=== PATIENT | male | born 1980 | race Caucasian/White ===

== ENCOUNTER 2021-07-02 15:46 | Emergency (ER) | payer OTHER, SELFPAY ==
[2021-07-02 16:08] VITALS: BP 109/86; PULSE 80; RESP 20; TEMP 36.8; O2SAT 99; BMI 22.1
--- NOTE | 2021-07-02 17:39 | W.ED.ABDPA2 ---
HPI - Abdominal Pain General: Chief Complaint: Abdominal Pain Stated Complaint: abd pain/sent by urgent care Time Seen by Provider: 07/02/21 17:32 History of Present Illness: HPI narrative: 41-year-old male patient comes in with abdominal pain for the last 3 days. Patient does have a history of abdominal pain about 3 months ago and was evaluated for some concerns of blood in the stool. Patient had upper and lower GI endoscopy which noted hemorrhoids and at the time he had a hemorrhoidectomy. Patient then reports for the last 3 days he has had increasing discomfort and has been using some Pepto-Bismol and has noted black stools. His female significant other states that there was black stools prior to this at times and is concerned about a GI bleed. Patient appears well. Patient appears in mild to no pain. Patient does not take routine medications except Metamucil. Patient reports some nausea but no fever or vomiting. Patient does report some weight loss over the last 4 months. Associated Symptoms: Reports other (Dark stools.) Review of Systems General: Reports: 10 or more systems reviewed and unremarkable except in HPI and below GI: Reports: abdominal pain and other (Dark stools.) [facility] ED PFSH: Social History (Updated 03/11/21 @ 09:32 by Kathy Wyman LPN) Smoking and tobacco status: never smoked Alcohol intake: never Physical Exam Const: COMMON NORMALS: no acute distress and patient oriented x3 GENERAL APPEARANCE: cooperative HENMT: COMMON NORMALS: normocephalic and Normal external nose present HEAD & SCALP: normal to inspection and normocephalic NOSE: Normal external nose present Eye: GENERAL EYE: appearance normal, both eyes and all related structures Neck/C-Spine: COMMON NORMALS: full ROM Chest: COMMONS NORMALS: normal inspection of the chest Resp: COMMON NORMALS: normal respiratory effort EFFORT & INSPECTION: Yes able to speak in complete sentences Cardio: COMMON NORMALS: regular rate and regular rhythm RATE: regular rate RHYTHM: regular rhythm GI: COMMON NORMALS: Soft to palpation PALPATION: Yes Soft to palpation and Yes Tenderness to palpation present (GI) (Generalized) : COMMON NORMALS: Yes no CVA tenderness BLADDER/KIDNEY EXAM: Yes no CVA tenderness Back/Pelvis: COMMON NORMALS: no CVA tenderness and thoracic and lumbar spine normal to inspection Extremity: COMMON NORMALS: normal to inspection Neuro: COMMON NORMALS: patient oriented x3 and moves all extremities Psych: COMMON NORMALS: mental status grossly normal and cooperative Skin: COMMON NORMALS: no rashes or lesions noted GENERAL SKIN EXAM: no rashes or lesions noted Course Vital Signs: Vital signs: Vital Signs Temperature 98.2 F 07/02/21 16:08 Pulse Rate 71 07/02/21 19:42 Respiratory Rate 19 H 07/02/21 19:42 Blood Pressure 119/69 07/02/21 19:42 Pulse Oximetry 98 07/02/21 19:42 MDM - Abdominal Pain MDM Narrative: Medical decision making narrative: Patient came in today for complaints of some diarrhea stools that were dark in nature. Spouse said they looked coffee ground. No vomiting has been noted. Abdomen has been slightly tender in the lower part of the abdomen. Patient denies any fever. On exam abdomen is soft with some minimal lower abdominal tenderness. Skin was warm and dry. No CVA tenderness was noted. Vital signs were normal. Differential diagnosis includes but not limited to gastroenteritis, gastritis, bowel obstruction, carcinoma. CT of the abdomen pelvis noted some nodules to the liver but otherwise was unremarkable. Patient did also have some incidental ascites to the on the exam. It was suggested that patient have an MRI on a nonemergent basis for further evaluation of the liver nodules. Laboratory values noted some mild anemia, CMP was unremarkable, lipase was normal. I believe the patient may have a gastritis. Patient also has a history of alcoholism and substance abuse which may be lending some concerns for GI bleed. Will place patient on pantoprazole 40 mg twice a day for the next 14 days. Recommend monitoring for fever. And encouraged follow-up with PCP for further evaluation of abnormal liver CT. Patient reported understanding and need for follow-up or return to the ER for worsening symptoms. Lab Data: Labs: Lab Results 07/02/21 07/02/21 17:40 17:40 WBC 10.2 10^3/uL H 10 ^3/uL (4.0-10.0) RBC 5.15 10^6/uL 10^6 /uL (4.1-5.3) Hgb 12.4 g/dL g/dL (11.7-16.6) Hct 39.7 % L % (42.0-52.0) MCV 77.1 fl L fl (80-94) MCH 24.1 pg L pg (28.0-34.0) MCHC 31.2 g/dL g/dL (30.0-36.0) RDW 15.7 % H % (12.1-15.1) Plt Count 391 10^3/cmm 10^3 /cmm (130-400) MPV 9.1 fL fL (7.4-10.4) Neut % (Auto) 69.8 % % Lymph % (Auto) 20.7 % % [place] % (Auto) 7.1 % % Eos % (Auto) 1.3 % % Baso % (Auto) 0.8 % % Neut # (Auto) 7.11 10^3/uL 10^3 /uL (1.8-7.7) Lymph # (Auto) 2.1 10^3/uL 10^3/ uL (0.8-4.8) [place] # (Auto) 0.7 10^3/uL 10^3/ uL (0.2-0.9) Eos # (Auto) 0.1 10^3/uL 10^3/ uL (0.0-0.8) Baso # (Auto) 0.1 10^3/uL 10^3/ uL (0.0-0.1) Nucleated RBC % (a uto) 0 % % Nucleated RBCs # 0.0 /100WBC /100W BC Sodium 137 mmol/L mmol/L (136-145) Potassium 4.0 mmol/L mmol/L (3.5-5.1) Chloride 98 mmol/L mmol/L (98-107) Carbon Dioxide 28 mmol/L mmol/L (22-29) Anion Gap 15.0 (5-19) BUN 11 mg/dL mg/dL (6-20) Creatinine 0.7 mg/dL mg/dL (0.7-1.2) GFR Calculation 124.3 mL/min mL/m in (90-130) Glucose 87 mg/dL mg/dL (65-115) Calculated Osmolal ity 283 mOsm/kg L mOs m/kg (285-295) Calcium 9.0 mg/dL mg/dL (8.5-10.5) Total Bilirubin 0.2 mg/dL mg/dL (0.15-1.2) AST 17 U/L U/L (0-40) ALT 19 U/L U/L (0-41) Alkaline Phosphata se 77 IU/L IU/L (40-130) Total Protein 7.3 g/dL g/dL (6.6-8.7) Albumin 3.7 g/dL g/dL (3.5-5.2) Globulin 3.6 g/dL g/dL (1.3-4.6) Lipase 16 U/L U/L (13-60) Discharge Plan Discharge Patient Disposition: Home Clinical Impression: Abnormal liver CT, Anemia, mild Gastritis Qualifiers: Gastritis type: unspecified gastritis Chronicity: unspecified Gastritis bleeding: with bleeding Qualified Code(s): K29.71 - Gastritis, unspecified, with bleeding Condition: Stable Prescriptions: New pantoprazole 40 mg tablet,delayed release (DR/EC) 40 mg PO BID 14 Days Qty: 28 RF: 0 Discharge Orders: Discharge ED (Routine); Ordered 07/02/21 Ordered By: Dallas Carnes Referrals: Aniceto Oswald DO [Primary Care Provider] - Discharge Diet: Usual diet Discharge Activity: Increase activity as tolerated Patient Instructions: Gastritis (ED), Opioid Safety Activity Restrictions/Additional Instructions: Home and rest. Take pantoprazole 1 tablet twice a day. Take the medication about 30 minutes prior to each meal. Healthy diet and activity. Follow-up with primary care for further evaluation regarding abnormal CT scan. In light of your weight loss is really important that you follow-up regarding this abnormal liver exam on the CT. It was suggested by radiologist that you have an MRI on a nonemergent evaluation for further exam. Light diet and activity. Drink plenty of fluids. Follow-up with primary care for further instruction. Return to the ER for high fever or new concerns. Coding Level of Care Code ED Wastewater Process Engineer for Chg Fwd Exam Comprehensive
--- NOTE | 2021-07-02 17:45 | CTR_ITS ---
PROCEDURE INFORMATION: Exam: CT Abdomen And Pelvis With Contrast Exam date and time: 07/02/2021 5:45 PM Age: 41 years old Clinical indication: Abdominal pain; Generalized; Patient HX: C/O abd pain w dark stool; Additional info: Abd pain, black tools TECHNIQUE: Imaging protocol: Computed tomography of the abdomen and pelvis with contrast. Radiation optimization: All CT scans at this facility use at least one of these dose optimization techniques: automated exposure control; mA and/or kV adjustment per patient size (includes targeted exams where dose is matched to clinical indication); or iterative reconstruction. Contrast material: OMNI 300; Contrast volume: 95 ml; Contrast route: INTRAVENOUS (IV); COMPARISON: No relevant prior studies available. RADIATION DOSE METRICS: Total DLP (mGy-cm): 1000.21 FINDINGS: Lungs: There is a noncalcified 7 mm left lower lobe pulmonary nodule on axial series 3, image 6. There is subsegmental atelectasis in the left lung. Liver: Scattered mixed density liver nodules measure up to 13 x 10 mm in the right lobe. Gallbladder and bile ducts: The gallbladder is normal. There is no biliary dilation. Pancreas: The pancreas is unremarkable. Spleen: The spleen is unremarkable. Adrenal glands: The adrenal glands are unremarkable. Kidneys and ureters: The kidneys are unremarkable. No hydronephrosis or stones. No ureteral dilation. Stomach and bowel: The stomach is unremarkable. The small bowel is nondilated. The colon is unremarkable. Appendix: The appendix is normal. Intraperitoneal space: Small volume ascites. There is no intraperitoneal free air. Vasculature: The aorta is unremarkable. There is no aneurysm. The portal, splenic and superior mesenteric veins are patent. Lymph nodes: There is no lymphadenopathy in the retroperitoneum, mesentery, pelvis or inguinal regions. Urinary bladder: The urinary bladder is unremarkable. Reproductive: The prostate and seminal vesicles are unremarkable. Bones/joints: Bones are unremarkable. Soft tissues: There are multiple metallic BBs in both buttocks. The abdominal wall is intact. CT/CT abdomen pelvis w con* [id number] IMPRESSION: 1. Mild ascites. 2. Indeterminate liver lesions. Further evaluation with non-emergent liver MRI is recommended. 3. Left lower lobe pulmonary nodule. For patients at low risk (minimal or absent history of smoking and of other known risk factors), recommend CT Chest at 6-12 months, then consider CT Chest at 18-24 months. For patients at high risk (history of smoking or of other known risk factors), recommend CT Chest at 6-12 months, then CT Chest at 18-24 months. (Reference: June) REFERENCES: June Espinosa et al. Guidelines for Management of Incidental Pulmonary Nodules Detected on CT Images: From the Fleischner Society 2017. Radiology. 2017;284(1):228-243. Radiation Dose CTDIVOL = (mGy): DLP = 1000.21 (mGy-cm)
[2021-07-02 17:50] LABS: Basophils # 0.1 10^3/uL (0.0-0.1); Basophils % 0.8 %; Eosinophils # 0.1 10^3/uL (0.0-0.8); Eosinophils % 1.3 %; Hematocrit 39.7 % (42.0-52.0); Hemoglobin 12.4 g/dL (11.7-16.6); Lymphocytes # 2.1 10^3/uL (0.8-4.8); Lymphocytes % 20.7 %; Mean Corpuscular HGB Conc 31.2 g/dL (30.0-36.0); Mean Corpuscular Hemoglobin 24.1 pg (28.0-34.0); Mean Corpuscular Volume 77.1 fl (80-94); Mean Platelet Volume 9.1 fL (7.4-10.4); Monocytes # 0.7 10^3/uL (0.2-0.9); Monocytes % 7.1 %; Neutrophils # 7.11 10^3/uL (1.8-7.7); Neutrophils % 69.8 %; Nucleated Red Blood Cells % 0 %; Platelet Count 391 10^3/cmm (130-400); Red Blood Count 5.15 10^6/uL (4.1-5.3); Red Cell Distribution Width 15.7 % (12.1-15.1); White Blood Count 10.2 10^3/uL (4.0-10.0)
[2021-07-02] MEDS: sodium chloride 0.9% 1,000 ML 999 ML IV (17:59)
[2021-07-02 18:32] LABS: Alanine Aminotransferase 19 U/L (0-41); Albumin Level 3.7 g/dL (3.5-5.2); Alkaline Phosphatase 77 IU/L (40-130); Aspartate Amino Transferase 17 U/L (0-40); Blood Urea Nitrogen 11 mg/dL (6-20); Carbon Dioxide 28 mmol/L (22-29); Chloride 98 mmol/L (98-107); Globulin 3.6 g/dL (1.3-4.6); Glomerular Filtration Rate 124.3 mL/min (90-130); Glucose 87 mg/dL (65-115); Lipase 16 U/L (13-60); Osmolality Calculated 283 mOsm/kg (285-295); Sodium 137 mmol/L (136-145); Total Bilirubin 0.2 mg/dL (0.15-1.2); Total Protein 7.3 g/dL (6.6-8.7)
[2021-07-02] MEDS: iohexol 300 mg/mL 100 mL Btl IV (18:34)
[2021-07-02 19:42] VITALS: BP 119/69; PULSE 71; RESP 19; O2SAT 98
[2021-07-02] MEDS: pantoprazole DR 40 mg Tablet PO (20:13)
== END 2021-07-02 20:22 | disposition home or self-care (01) ==
PROVIDERS: Emergency Provider Nurse Practitioner Family; PCP Family Medicine
DX: K29.71 Gastritis, unspecified, with bleeding (principal); D64.9 Anemia, unspecified; R93.2 Abnormal findings on diagnostic imaging of liver and biliary tract
CPT/HCPCS: 74177; 80053; 83690; 85025; 96360; 99283; J7030; Q9967

== ENCOUNTER 2024-09-22 16:58 | Inpatient (IN) | payer SELFPAY ==
--- NOTE | 2024-09-22 17:04 | W.ED.PSYCHS ---
HPI - Psych General: Chief Complaint: Psychiatric Symptoms Stated Complaint: 96 Hold Time Seen by Provider: 09/22/24 17:00 Source: patient and police Mode of arrival: ambulatory Limitations: no limitations History of Present Illness: 44-year-old male is brought here by police for suicidal ideations patient states he has had recent drug use including meth states that he feels worthless and just no longer wants to live he states has been having active thoughts of killing himself and wants to get help he denies any worsening improving factors. Associated symptoms: Reports depression and suicidal ideation Related Data Allergies Allergy/AdvReac Type Severity Reaction Status Date / Time No Known Allergies Allergy Verified 03/11/21 09:36 Review of Systems Const: Denies: fever(s), chills, body aches or change in appetite ENMT: Denies: throat pain or dental pain Card: Denies: chest pain Resp: Denies: dyspnea GI: Denies: abdominal pain, nausea, vomiting or diarrhea Musc: Denies: neck pain or back pain Skin/Breast: Denies: rash Neuro: Denies: headache(s) Psych: Reports: depression and suicidal ideation [facility] ED PFSH: Social History Smoking and tobacco/nicotine status: never used tobacco/nicotine Alcohol intake: never Substance/Drug Use: never Physical Exam Const: COMMON NORMALS: no acute distress, patient oriented x3 and healthy appearing HENMT: COMMON NORMALS: normocephalic and atraumatic HEAD & SCALP: normocephalic and atraumatic Eye: COMMON NORMALS: conjunctivae normal CONJUNCTIVA: Yes conjunctivae normal Neck/C-Spine: COMMON NORMALS: full ROM and supple Chest: COMMONS NORMALS: normal inspection of the chest Resp: COMMON NORMALS: normal respiratory effort Cardio: COMMON NORMALS: regular rate, regular rhythm and No murmurs present (Cardio) RATE: regular rate RHYTHM: regular rhythm Extremity: COMMON NORMALS: normal to inspection and full ROM Neuro: COMMON NORMALS: patient oriented x3, moves all extremities and no focal motor deficits Psych: COMMON NORMALS: mental status grossly normal and cooperative MOOD & AFFECT: Yes depressed mood THOUGHT CONTENT: Yes Suicidality present Skin: COMMON NORMALS: no rashes or lesions noted and no wounds GENERAL SKIN EXAM: no rashes or lesions noted Course Vital Signs: Vital signs: Vital Signs Temperature 98.2 F 09/22/24 17:07 Pulse Rate 82 09/22/24 17:07 Respiratory Rate 16 09/22/24 17:07 Blood Pressure 128/83 09/22/24 17:07 Pulse Oximetry 95 09/22/24 17:07 Oxygen Delivery Me thod Room Air 09/22/24 17:07 MDM - Psych Medical Decision Making Patient presents here with suicidal ideation he is medically cleared I spoke to psychiatrist will admit at this time. He is under 96-hour hold. Medical Records I reviewed the patient's medical records. Lab Data I reviewed the patient's lab results. 09/22/24 17:50 09/22/24 17:50 Laboratory Results WBC 12.61 10^3/uL (3.29-11.43) H 09/22/24 17:50 RBC 4.73 10^6/uL (3.85-5.65) 09/22/24 17:50 Hgb 12.40 g/dL (11.27-16.99) 09/22/24 17:50 Hct 36.3 % (37-53) L 09/22/24 17:50 MCV 76.7 fl (82-101) L 09/22/24 17:50 MCH 26.2 pg (27-33) L 09/22/24 17:50 MCHC 34.2 g/dL (30-55) 09/22/24 17:50 RDW 14.4 % (12.1-15.1) 09/22/24 17:50 Plt Count 368 10^3/cmm (157-399) 09/22/24 17:50 MPV 9.2 fL (7.4-10.4) 09/22/24 17:50 Neut % (Auto) 84.0 % 09/22/24 17:50 Lymph % (Auto) 8.1 % 09/22/24 17:50 [place] % (Auto) 7.1 % 09/22/24 17:50 Eos % (Auto) 0.0 % 09/22/24 17:50 Baso % (Auto) 0.2 % 09/22/24 17:50 Neut # (Auto) 10.61 10^3/uL (1.8-7.7) H 09/22/24 17:50 Lymph # (Auto) 1.0 10^3/uL (0.8-4.8) 09/22/24 17:50 [place] # (Auto) 0.9 10^3/uL (0.2-0.9) 09/22/24 17:50 Eos # (Auto) 0.0 10^3/uL (0.0-0.8) 09/22/24 17:50 Baso # (Auto) 0.0 10^3/uL (0.0-0.1) 09/22/24 17:50 Nucleated RBC % (auto) 0 % 09/22/24 17:50 Nucleated RBCs # 0.0 /100WBC 09/22/24 17:50 No radiology studies performed this visit Discharge Plan Discharge Patient Disposition: Admitted As Inpatient Clinical Impression: Suicidal ideation Condition: Stable Referrals: Aniceto Owsald DO [Primary Care Provider] - Coding Level of Care Code ED Waistband Setter for Kam Brenner
[2024-09-22 17:07] VITALS: BP 128/83; PULSE 82; RESP 16; TEMP 36.8; O2SAT 95; BMI 20.7
--- NOTE | 2024-09-22 17:10 | PC.NURSE ---
pt changed out into green paperscrubs by Enzo gonzalez. pt belongings removed and inventoried by Enzo Edward and robotics testing technicianJonathan gutierrez. belongings placed into locker outside room 9.
--- NOTE | 2024-09-22 17:57 | PC.NURSE ---
96 hr rights reviewed with patient @2047 with assistance of NELLY Nails. All education reviewed with patient. No verbalized questions or concerns at this time. Patient copy left @bedside with patient. Water and soda provided. No verbalized needs at this time.
[2024-09-22 18:09] LABS: Basophils % 0.2 %; Hematocrit 36.3 % (37-53); Lymphocytes % 8.1 %; Mean Corpuscular HGB Conc 34.2 g/dL (30-55); Mean Corpuscular Hemoglobin 26.2 pg (27-33); Mean Corpuscular Volume 76.7 fl (82-101); Mean Platelet Volume 9.2 fL (7.4-10.4); Monocytes # 0.9 10^3/uL (0.2-0.9); Monocytes % 7.1 %; Neutrophils # 10.61 10^3/uL (1.8-7.7); Nucleated Red Blood Cells % 0 %; Platelet Count 368 10^3/cmm (157-399); Red Blood Count 4.73 10^6/uL (3.85-5.65); Red Cell Distribution Width 14.4 % (12.1-15.1); White Blood Count 12.61 10^3/uL (3.29-11.43)
[2024-09-22 18:29] LABS: Alanine Aminotransferase 132 U/L (0-41); Albumin Level 4.5 g/dL (3.5-5.2); Alkaline Phosphatase 80 U/L (40-130); Anion Gap 27.4 (5-19); Aspartate Amino Transferase 198 U/L (0-40); Blood Urea Nitrogen 71 mg/dL (6-20); Carbon Dioxide 21 mmol/L (22-29); Chloride 95 mmol/L (98-107); Creatinine Clr Calc Pharmacy 22.0557; Globulin 2.9 g/dL (1.3-4.6); Glomerular Filtration Rate 15.9 mL/min (90-130); Glucose 92 mg/dL (65-115); Osmolality Calculated 310 mOsm/kg (285-295); Potassium 3.4 mmol/L (3.5-5.1); Sodium 140 mmol/L (136-145); Total Bilirubin 0.8 mg/dL (0.15-1.2); Total Protein 7.4 g/dL (6.6-8.7)
[2024-09-22 18:31] LABS: Acetaminophen < 5.0 ug/mL (10-30); Alcohol Level < 10 mg/dL (0-10); Salicylate < 0.3 mg/dL (3-10)
[2024-09-22 19:36] VITALS: BP 132/82; PULSE 104; RESP 20; TEMP 36.5; O2SAT 97
[2024-09-22 19:41] VITALS: PULSE 87; O2SAT 97
[2024-09-22 20:09] VITALS: BP 132/82; PULSE 104; RESP 20; TEMP 36.5; O2SAT 97
[2024-09-22] MEDS: trazodone 50 mg Tablet PO (21:28)
[2024-09-22] MEDS: hyDROXYzine 25 mg Capsule 50 MG PO (21:28)
[2024-09-22] MEDS: OLANZapine 5 mg ODT PO (21:28)
[2024-09-22 22:29] LABS: Amphetamines Screen Urine Positive (Negative); Barbiturates Screen Urine Negative (Negative); Benzodiazepines Screen Urine Negative (Negative); Cocaine Screen Urine Negative (Negative); Opiate Screen Urine Negative (Negative); PCP Screen Urine Negative (Negative); THC Screen Urine Positive (Negative)
[2024-09-22] MEDS: haloperidol inj 5 mg/mL INJ 1 mL IM (23:16)
[2024-09-22] MEDS: LORazepam 2 mg/mL INJ 1 mL IM (23:16)
[2024-09-22] MEDS: diphenhydrAMINE 50 mg/mL SDV 1mL IM (23:17)
--- NOTE | 2024-09-22 23:36 | PC.NURSE ---
At 23:15 while doing her rounds Saray Coleman CNA observed Patient pacing and screaming in his room, Stating that he was ON FIRE . Patient Perceived that he was BURNING ALIVE . Charge nurse Assessed Patient and indeed he was having these delusions. Dr. Thrasher was notified and Patient was given Benadryl 50 mg IM, Haldol 5 mg IM and Ativan 2MG IM for increased agitation and acting out loudly. Patient now is laying in bed resting with eyes closed.
--- NOTE | 2024-09-23 03:36 | PC.NURSE ---
when this principal technical writer was walking rounds at 2315 I observed Patient pacing and screaming in his room, Stating that he was ON FIRE . Patient Perceived that he was BURNING ALIVE . Charge nurse Jose A Assessed Patient and indeed he was having these delusions.
[2024-09-23 06:30] VITALS: BP 132/78; PULSE 73; RESP 16; TEMP 36.9; O2SAT 99
[2024-09-23] MEDS: OLANZapine 5 mg ODT PO (08:15)
[2024-09-23] MEDS: hyDROXYzine 25 mg Capsule 50 MG PO (08:15)
[2024-09-23] MEDS: nicotine 4 mg lozenge MUCOUS MEM ×2 (08:15→21:06)
[2024-09-23] MEDS: gabapentin 300 mg Capsule PO ×3 (08:15→21:07)
[2024-09-23 14:00] VITALS: BP 100/66; PULSE 77; RESP 18; TEMP 36.6; O2SAT 100
--- NOTE | 2024-09-23 18:47 | P.NPUHP_ITS ---
Providers/Chief Complaint 2 Admitting Physician: Freddie Godinez MD Primary Care Provider: Aniceto Oswald DO Chief Complaint: 96 Hold HPI NPU History of Present Illness Jacek Romero is a 44 year old male who presented to the emergency department accompanied by the police after he had reported to police that he had been feeling suicidal and more depressed since relapsing on methamphetamine over the last 8 days. The patient was admitted to the neuropsychiatric unit for further evaluation and treatment. He endorses having increasing thoughts of suicide. He reports that he has been having frequent awakenings at night. He reports having chronic pain issues. He reports increased stress from a declining relationship with his current . He had stated that he had been sober off of methamphetamine for 6 years but decided to hawk with his meth amphetamine using and take methamphetamine with her. He reports that since that time he has also been having auditory hallucinations reporting that he hears to stupid gis manager messing in my head . He also reports seeing various things that do not appear to be there. He has reported that this is caused him a great deal of distress. He endorses increased feelings of hopelessness. He reports difficulties with concentration and endorses that he has been crying more frequently. He denies any history of romulo. He did report a past history of psychosis associated with methamphetamine use. He denies any recent problems with his previous medical issues regarding malignant mesothelioma. He has reported some recent anhedonia. He denied any recent shortness of breath. He reported no history of recent hemoptysis. He denied any recent anxiety. He does report some recent loss of appetite. Inpatient psychiatric history: None Outpatient psychiatric history: None reported, previous records that indicated some medication trials with psychotropic medications including olanzapine, and mirtazapine over the past year. Medical history: History of malignant mesothelioma with history of chemotherapy. Patient reports receiving routine PET scans every 3 months [facility]. Surgical history: Patient does report a history of a recent pleurectomy. Allergies: No known drug allergies Current medications: Gabapentin 300 mg twice a day, oxycodone, mirtazapine 7.5 mg at night, buprenorphine patch 20 mcg/h Legal history: None reported Family psychiatric history: None reported Substance abuse history: He reported having used methamphetamines for many years and stated relapsing after 6 years of sobriety. He had not endorsed any history of recent substance abuse treatment either inpatient or outpatient. He denies any routine alcohol use. He does report routine marijuana use. Social history: Patient was born in [place] and raised by his biological parents. He had denied any history of trauma during his childhood. He reports that he had graduated high school from [place]. He has 1 brother and 2 sisters. He reports that he has 2 children from a previous relationship. He reports that he has been for 5 years and currently lives with his . 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 He had reported no history of problems with learning during his childhood. Meds NPU Allergies Allergy/AdvReac Type Severity Reaction Status Date / Time No Known Allergies Allergy Verified 03/11/21 09:36 PFSH NPU 2 PFSH: Social History Smoking and tobacco/nicotine status: never used tobacco/nicotine Alcohol intake: never Substance/Drug Use: never Mental Status Exam 2 MSE Comments: Patient is a cachectic white male who was cooperative on interview. His gait appeared slow but steady. His hygiene was poor. There was no evidence of any abnormal involuntary motor movements, tics, or tremors appreciated. His speech was slightly reduced in rate but normal in volume and prosody. His mood was described as depressed. His affect was restricted in range and mood congruent. His thought process was linear logical and goal-directed. His thought content showed suicidal ideation with no clear plan endorsed. He denied any homicidal ideation. He did at times appear to be responding to internal stimuli and endorsed hearing to voices and has had having a disagreement. He also endorsed visual hallucinations. There was no clear evidence of delusional thinking. He was alert and oriented person place time and situation. His recent and remote memory appeared grossly intact. His insight was poor. His judgment was poor. His impulse control appeared limited. His attention span was variable. Vitals/I&O/Wt Last Vital Signs Temp 98 F 09/23/24 14:00 Pulse 77 09/23/24 14:00 Resp 18 09/23/24 14:00 BP 100/66 09/23/24 14:00 Pulse Ox 100 09/23/24 14:00 O2 Del Method Room Air 09/22/24 19:36 Weight last 48 hrs Weight 63.503 kg Data NPU 09/22/24 17:50 09/22/24 17:50 A&P Assessment and plan (1) Depression, unspecified: (2) Unspecified psychosis: (3) Suicidal ideation: (4) Methamphetamine abuse: Plan 44-year-old male with a past history of malignant mesothelioma reports worsening mood in the presence of hallucinations in the context of active use of methamphetamine after an extended history of sobriety from methamphetamine. Patient was agreeable to treatment for his depression and psychosis at this time. #1.? Engage patient in individual milieu and group therapy. #2?? Recommend sober living treatment at the highest level of care to which the patient is willing to commit #3???Start Zyprexa 5mg at night to target psychosis. Start Lexapro 10mg daily to target depression. Continue Oxycodone as prescribed. #4?? TO-15 minute checks? #5?? Will attempt to gather collateral information #6 Medical consult regarding labs. Involuntary Hold Information 2 96 Hour Hold: 96 Hour Involuntary Admission: Yes 96 Hour Hold Ending Date: 09/28/24 96 Hour Hold Ending Time: 17:13 Attestations NPU 2 Medical Necessity Statement*: Inpatient hospitalization is medically necessary and deemed to ?be ?the clinically appropriate intervention ?at this time.? We will monitor/initiate medications and make changes as indicated.? The patient will be in the hospital for over 2 midnights.? The patient?s likely length of stay 5-7 days. Coding Level of Care Code Acute Code for Chg Fwd Diagnoses Depression, unspecified F32.A Unspecified psychosis F29 Suicidal ideation R45.851 Methamphetamine abuse F15.10
--- NOTE | 2024-09-23 19:37 | PC.NURSE ---
NEW ORDERS RECEIVED TO START OXYCODONE IR 10 MG PO Q 4 HOUR PRN PAIN. PT EDUCATED SUPPORT VOICED.
[2024-09-23 20:07] VITALS: BP 117/69; PULSE 72; RESP 18; O2SAT 100
--- NOTE | 2024-09-23 20:29 | P.CONIM_ITS ---
Providers/Reason For Consult 2 Consulting Physician/Specialty*: psychiatry Reason for Consult*: ruthann Attending Physician: Freddie Godinez MD Primary Care Provider: Aniceto Oswald DO History of Present Illness History of Present Illness Jacek Romero is a 44 year old male with a past medical history of malignant mesothelioma, status post EPP surgery in [place] roughly a year ago, follows up with oncology in [facility], who presents to [facility] neuropsychiatric unit for suicidal ideation. Hospitalist team has been consulted due to patient's RUTHANN creatinine 4.1, transaminitis. Patient tells me that he was diagnosed with mesothelioma a few years ago, the cause is unknown, he had what sounds a EPP surgery for it in [facility], follows up with oncology team in [facility], his last few Scans show no reoccurrence, he tells me that after his EPP surgery he developed acute kidney failure, his GFR was down to 30, but then it recovered, he does report smoking, does report methamphetamine use, denies a history of HIV or hepatitis C, no flank pain, no dysuria Review of Systems 2 Const: Denies: fever(s) or chills Card: Denies: chest pain Resp: Denies: dyspnea GI: Denies: abdominal pain Neuro: Denies: headache(s) Medications/Allergies Home Medications Medication Instructions Recorded Confirmed Last Taken Type gabapentin 300 mg capsule 300 mg PO TID 09/23/24 09/23/24 09/23/24 18:00 History (Neurontin) Allergies Allergy/AdvReac Type Severity Reaction Status Date / Time No Known Allergies Allergy Verified 03/11/21 09:36 Current Medications Generic Name Dose Route Start Last Admin Trade Name Freq PRN Reason Stop Dose Admin Diphenhydramine HCl 50 mg 09/22/24 19:36 09/22/24 23:17 Diphenhydramine 50 Mg/Ml Sdv 1ml IM 50 mg ONCE PRN Administration Severe Extrapyramidal Symptoms Gabapentin 300 mg 09/23/24 09:00 09/23/24 15:15 Gabapentin 300 Mg Capsule PO 300 mg TID SLOAN Administration Haloperidol Lactate 5 mg 09/22/24 19:36 09/22/24 23:16 Haloperidol Inj 5 Mg/Ml Inj 1 Ml IM 5 mg Q4H PRN Administration Severe Aggression Hydroxyzine Pamoate 50 mg 09/22/24 19:36 09/23/24 08:15 Hydroxyzine 25 Mg Capsule PO 50 mg Q6H PRN Administration ANXIETY Lorazepam 2 mg 09/22/24 19:36 09/22/24 23:16 Lorazepam 2 Mg/Ml Inj 1 Ml IM 2 mg Q4H PRN Administration Severe Aggression Nicotine Polacrilex 4 mg 09/22/24 22:56 09/23/24 08:15 Nicotine 4 Mg Lozenge MUCOUS MEM 4 mg Q2H PRN Administration NICOTINE CRAVINGS Olanzapine 5 mg 09/22/24 19:36 09/23/24 08:15 Olanzapine 5 Mg Odt PO 5 mg Q4H PRN Administration Agitation/Psychosis Trazodone HCl 50 mg 09/22/24 19:36 09/22/24 21:28 Trazodone 50 Mg Tablet PO 50 mg BEDTIME PRN Administration SLEEP PFSH Acute 2 PFSH: Medical History (Updated 09/23/24 @ 20:38 by Tunde Haro MD) History of malignant mesothelioma Social History Smoking and tobacco/nicotine status: never used tobacco/nicotine Alcohol intake: never Substance/Drug Use: never Vitals/I&O/Wt Last Vital Signs Temp 98 F 09/23/24 14:00 Pulse 72 09/23/24 20:07 Resp 18 09/23/24 20:07 BP 117/69 09/23/24 20:07 Pulse Ox 100 09/23/24 20:07 O2 Del Method Room Air 09/22/24 19:36 Weight last 48 hrs Weight 63.503 kg Physical Exam 2 Const: COMMON NORMALS: no acute distress and patient oriented x3 Eye: COMMON NORMALS: Equal, round and reactive pupils present and EOMs intact bilaterally PUPIL: Yes Equal, round and reactive pupils present Resp: COMMON NORMALS: normal respiratory effort, No retractions, No use of accessory muscles and clear to auscultation bilaterally AUSCULTATION: clear to auscultation bilaterally Cardio: COMMON NORMALS: regular rate, regular rhythm, S1 normal heart sound present and S2 normal heart sound present RATE: regular rate RHYTHM: r egular rhythm HEART SOUNDS: S1 normal heart sound present and S2 normal heart sound present GI: COMMON NORMALS: Normal to inspection, nondistended, normoactive bowel sounds present and non-tender Extremity: COMMON NORMALS: no pedal edema Neuro: COMMON NORMALS: patient oriented x3 Skin: OTHER: Multiple track sesay seen on right forearm, with some surrounding erythema Data 09/22/24 17:50 09/22/24 17:50 A&P Assessment and plan (1) RUTHANN (acute kidney injury): (2) Transaminitis: Plan Acute kidney injury -Etiology unclear -Recheck creatinine -CPK -Further blood work -Might require inpatient admission for IV fluids based on clinical progress Leukocytosis -Recheck -CRP, Pro-Michele Low MCV, ferritin, iron, Transaminitis, HIV, hep panel, lipase, Consult Attestations 2 Medical Necessity Statement: Patient requires hospitalization, RUTHANN, leukocytosis, transaminitis Diagnoses RUTHANN (acute kidney injury) N17.9 Transaminitis R74.01
[2024-09-23] MEDS: trazodone 50 mg Tablet PO (21:06)
[2024-09-23 21:07] VITALS: RESP 18; O2SAT 100
[2024-09-23] MEDS: OLANZapine 5 mg TABLET PO (21:07)
[2024-09-23] MEDS: oxyCODONE 5 mg IR Tab/Cap 10 MG PO (21:07)
[2024-09-23 22:44] LABS: Bilirubin Urine Negative (Negative); Blood Urine Trace (Negative); Glucose Urine UA Negative (Normal); Ketones Urine Negative (Negative); Leukocyte Esterase Urine Negative (Negative); Nitrate Urine Negative (Negative); Protein Urine 1+ (Negative); Specific Gravity, Urine 1.021 (1.005-1.030); Urine Appearance Clear (CLEAR); Urine Color Yellow (Yellow); pH Urine 5.5 (5-7)
[2024-09-23 22:49] LABS: Add Urine Microscopic? YES; Bacteria Urine None Seen /hpf; Hyaline Casts Urine 1.65 /lpf; RBC Urine 0-2 /hpf (0-2); Squamous Epithelial Cell Urine 0-5 /hpf (0-5); WBC Urine 0-5 /hpf (0-5)
[2024-09-23 23:32] LABS: Basophils % 0.5 %; Eosinophils # 0.1 10^3/uL (0.0-0.8); Eosinophils % 1.2 %; Hematocrit 34.6 % (37-53); Lymphocytes # 1.7 10^3/uL (0.8-4.8); Lymphocytes % 19.4 %; Mean Corpuscular HGB Conc 34.4 g/dL (30-55); Mean Corpuscular Hemoglobin 26.8 pg (27-33); Mean Corpuscular Volume 77.9 fl (82-101); Monocytes # 0.8 10^3/uL (0.2-0.9); Monocytes % 9.2 %; Neutrophils # 5.95 10^3/uL (1.8-7.7); Neutrophils % 69.5 %; Nucleated Red Blood Cells % 0 %; Platelet Count 349 10^3/cmm (157-399); Red Blood Count 4.44 10^6/uL (3.85-5.65); Red Cell Distribution Width 14.7 % (12.1-15.1); White Blood Count 8.56 10^3/uL (3.29-11.43)
[2024-09-23 23:46] LABS: Alanine Aminotransferase 94 U/L (0-41); Albumin Level 3.7 g/dL (3.5-5.2); Alkaline Phosphatase 66 U/L (40-130); Anion Gap 13.2 (5-19); Aspartate Amino Transferase 98 U/L (0-40); Blood Urea Nitrogen 71 mg/dL (6-20); C Reactive Protein 46.6 mg/L (0.0-4.9); Calcium 8.9 mg/dL (8.5-10.5); Carbon Dioxide 26 mmol/L (22-29); Chloride 100 mmol/L (98-107); Creatinine Clr Calc Pharmacy 28.2588; Ferritin 208 ng/mL (30-400); Gamma Glutamyl Transferase 18 U/L (8-61); Globulin 2.4 g/dL (1.3-4.6); Glomerular Filtration Rate 21.2 mL/min (90-130); Glucose 117 mg/dL (65-115); Iron 19 ug/dL (59-158); Lipase 102 U/L (13-60); Osmolality Calculated 304 mOsm/kg (285-295); Percent Saturation 8.4 % (20-50); Potassium 3.2 mmol/L (3.5-5.1); Sodium 136 mmol/L (136-145); Total Bilirubin 0.3 mg/dL (0.15-1.2); Total Iron Binding Capacity 225 mcg/dl; Total Protein 6.1 g/dL (6.6-8.7); Unsaturated Iron Binding 206 ug/dL (112-347)
[2024-09-23 23:53] LABS: Procalcitonin 0.49 ng/mL (0-0.5)
[2024-09-24] VITALS (8 sets, daily range): BP systolic 102–126; BP diastolic 49–68; PULSE 60–82; RESP 16–18; O2SAT 96–100
[2024-09-24 00:04] LABS: Creatine Phosphokinase 2375 U/L (39-308)
--- NOTE | 2024-09-24 00:08 | US_ITS ---
WS: [id number] Complete ABDOMINAL ULTRASOUND HISTORY: liver/phil COMPARISON: CT 07/02/2021 Liver: 14.5 cm in length. Normal size liver and echogenicity. No bile duct dilatation or mass. Indete rminate liver masses seen on the prior CT of 07/02/2021 are not definitely identified. There may be a few small scattered benign cysts. There is no solid mass identified. Portal Vein: Normal hepatopetal flow with monophasic waveform. Gallbladder: Status post cholecystectomy. CBD: 0.6 cm Pancreas: Normal size and echogenicity. Right kidney: 11.2 cm x 4.6 x 3.8 cm. Cortex: 1.3 cm. Normal size and echogenicity. No hydronephrosis or mass. Left kidney: 10.5 cm x 3.9 cm x 5.1 cm. Cortex: 1.3 cm. Normal size and echogenicity. No hydronephrosis or mass. Spleen: 11.3 cm. Normal size and echogenicity. Aorta and IVC: Unremarkable abdominal aorta and IVC. US/US abdomen complete* [id number] Impression: 1. Status post cholecystectomy. 2. No renal obstruction or mass. 3. No intrahepatic duct dilatation.
[2024-09-24 00:11] LABS: Hepatitis A Antibody IgM Non-Reactive (Nonreactive); Hepatitis B Core IgM Non-Reactive (Nonreactive); Hepatitis B Surface Antigen Non-Reactive (Nonreactive); Hepatitis C Virus Antibody Reactive (Nonreactive)
[2024-09-24 00:12] LABS: HIV 1 & 2 Antibody Non-Reactive (Non-Reactiv); HIV 1 & 2 Antigen Non-Reactive (Non-Reactiv)
--- NOTE | 2024-09-24 00:35 | PC.NURSE ---
Lab called with a critical : CK was [id number]. Dr Haro notified. Orders for 1:1 sitter while administering ordered IV fluids. Awaiting a sitter and supplies to run fluids.
[2024-09-24] MEDS: sodium chloride 0.9% 1,000 ML 75 ML IV ×2 (01:24→13:45)
[2024-09-24] MEDS: escitalopram 10 mg Tablet PO (08:26)
[2024-09-24] MEDS: gabapentin 300 mg Capsule PO ×3 (08:26→21:21)
[2024-09-24] MEDS: oxyCODONE 5 mg IR Tab/Cap 10 MG PO ×3 (08:26→21:20)
[2024-09-24] MEDS: OLANZapine 5 mg ODT PO (08:29)
--- NOTE | 2024-09-24 08:44 | PC.NURSE ---
UP PACING IN ROOM WITH SITTER AT SIDE DUE TO LEFT AC FOREARM IV #20 INFUSING NS AT 75MLS/HR. PT IS AWAITING ICU/CSU OR MED SURG BED DUE TO INCREASED CRITICAL CK LEVEL AND DIAGNOSIS OF RHABDOMYLOSIS. REPORTS INCREASED ANXIETY 8/10 AND DEPRESSION 9/10, VISTARILL 50 MG GIVEN ORDERED FOR ANXIETY. PT CONTINUES TO ENDORSE SEEING KIDS PUSH DOWN A TREE AND OTHER BIZARRE SCENARIO'S. POSITVE FOR VISUAL HALLUCINATIONS. DENIES SI/HI AND AH AT THIS TIME. REPORTS HE SLEPT WELL. RATES PAIN. NPO UNTIL U/S OF KIDNEY AND LIVER COMPLETED. ORDERS PLACED. PT IS ABLE TO TAKE MEDICATION AND REPORTED PAIN 3/10, OXYCODONE 10 MG GIVEN ORDERED FOR PAIN. ALL QUESTIONS ANSWERED AND SUPPORT VOICED.
[2024-09-24] MEDS: nicotine 2 mg Gum BUCCAL ×2 (10:21→15:16)
--- NOTE | 2024-09-24 10:28 | PC.NURSE ---
U/S HAS COMPLETED U/S OF LIVER AND KIDNEYS, NPO ORDER REMOVED.
--- NOTE | 2024-09-24 15:16 | P.NPUPN_ITS ---
Subjective NPU 2 Subjective: 44-year-old male admitted with auditory and visual hallucinations along with depression and suicidal ideation. The patient had endorsed the use of amphetamines. He had been given IV fluids out of concern of rhabdomyolysis after consultation from the medical team last night. Patient had expressed being thankful. He had reported continued depression and stated that he had been more sad recently. He reported no side effects from his current regimen but continued to report hearing the voice of police officers in his head. The patient reported low energy and low motivation. He had expressed desire to follow-up again with his oncologist regarding his malignant mesothelioma. Mental Status Exam 2 MSE Comments: He is pleasant and cooperative on interview. He appeared in no acute distress with IV in his arm in his room delivering fluids. His speech was normal in regards to rate, rhythm and prosody. His mood was described as down. His affect was restricted in range and mood congruent. He did appear to be responding to internal stimuli and endorsed auditory hallucinations and visual hallucinations. There was no evidence of delusional thinking. He was alert oriented to person, place, time and situation. His recent and remote memory appeared grossly intact. His attention span was adequate. He denied any homicidal ideation but endorsed suicidal ideation. His insight was poor . His judgment at this time was poor. His impulse control appeared fair. There is no evidence of any abnormal involuntary motor movements tics or tremors appreciated. Vitals/I&O/Wt Last Vital Signs Temp 98 F 09/23/24 14:00 Pulse 63 09/24/24 14:00 Resp 16 09/24/24 14:00 BP 126/67 09/24/24 14:00 Pulse Ox 100 09/24/24 14:00 O2 Del Method Room Air 09/22/24 19:36 09/24/24 09/24/24 09/24/24 06:59 14:59 22:59 Intake Total 926.25 / 926.25 Balance 926.25 / 926.25 Weight last 48 hrs Weight 63.503 kg Data NPU 09/23/24 22:59 09/23/24 22:59 A&P Assessment and plan (1) Depression, unspecified: (2) Unspecified psychosis: (3) Suicidal ideation: (4) Methamphetamine abuse: Plan 44-year-old male with a past history of malignant mesothelioma reports worsening mood in the presence of hallucinations in the context of active use of methamphetamine after an extended history of sobriety from methamphetamine. Patient was agreeable to treatment for his depression and psychosis at this time. #1.? Engage patient in individual milieu and group therapy. #2?? Recommend sober living treatment at the highest level of care to which the patient is willing to commit #3???Continue Zyprexa 5mg at night to target psychosis. Continue Lexapro 10mg daily to target depression. Continue Oxycodone as prescribed. #4?? TO-15 minute checks? #5?? Will attempt to gather collateral information #6 Appreciate medical consult for treatment of Rhabdomyolysis. IV fluids etc. Involuntary Hold Information 2 96 Hour Hold: 96 Hour Involuntary Admission: Yes 96 Hour Hold Ending Date: 09/28/24 96 Hour Hold Ending Time: 17:13 Attestations NPU 2 Medical Necessity Statement*: Inpatient hospitalization is medically necessary and deemed to ?be ?the clinically appropriate intervention ?at this time.? We will monitor/initiate medications and make changes as indicated.? The patient?s likely length of stay 5-7 days. Coding Level of Care Code Acute Code for Chg Fwd Diagnoses Depression, unspecified F32.A Unspecified psychosis F29 Suicidal ideation R45.851 Methamphetamine abuse F15.10
--- NOTE | 2024-09-24 20:31 | P.PN_ITS ---
Subjective 2 Subjective: He overall does not feel great, he is having some muscle aches, denies nausea or vomiting. Vitals/I&O/Wt Last Vital Signs Temp 98 F 09/23/24 14:00 Pulse 82 09/24/24 19:52 Resp 16 09/24/24 19:52 BP 102/49 09/24/24 19:52 Pulse Ox 96 09/24/24 19:52 O2 Del Method Room Air 09/22/24 19:36 09/24/24 09/24/24 09/24/24 06:59 14:59 22:59 Intake Total 926.25 / 926.25 Balance 926.25 / 926.25 Physical Exam 2 Narrative: Sitting up in bed. Accompanied by one-to-one sitter Const: COMMON NORMALS: patient oriented x3 and alert GENERAL APPEARANCE: c ooperative ORIENTATION/CONSCIOUSNESS: Yes awake HENMT: COMMON NORMALS: oropharynx normal Neck/C-Spine: COMMON NORMALS: no JVD Resp: COMMON NORMALS: normal respiratory effort and clear to auscultation bilaterally AUSCULTATION: clear to auscultation bilaterally Cardio: COMMON NORMALS: no JVD, regular rhythm, S1 normal heart sound present, S2 normal heart sound present and No murmurs present (Cardio) RHYTHM: regular rhythm HEART SOUNDS: S1 normal heart sound present and S2 normal heart sound present GI: COMMON NORMALS: Normal to inspection, nondistended, normoactive bowel sounds present, Soft to palpation and non-tender PALPATION: Yes Soft to palpation Extremity: COMMON NORMALS: no joint enlargement and no pedal edema Neuro: COMMON NORMALS: patient oriented x3 and moves all extremities S ENSORIUM/ORIENTATION: Yes alert Skin: COMMON NORMALS: no rashes or lesions noted GENERAL SKIN EXAM: no rashes or lesions noted Data 09/23/24 22:59 09/23/24 22:59 A&P Assessment and plan (1) RUTHANN (acute kidney injury): (2) Transaminitis: Plan Acute kidney injury: Reviewed vitals, BUN, creatinine, potassium, bicarb, anion gap, noted with improving renal function, BUN 71, creatinine down to 3.2. Anion gap and bicarb unremarkable, bicarb is 26. Continue IV hydration for now. Reviewed CK, 2375, repeat CK level. He is having some myalgia. -Etiology unclear Repeat chemistry. -Further blood work -Might require inpatient admission for IV fluids based on clinical progress Leukocytosis: Reviewed CBC, leukocytosis resolved. -Recheck CRP with moderate elevation. Procalcitonin not elevated at 0.49. Iron deficiency: Start iron supplementation would benefit from outpatient follow-up to further assess cause, plan endoscopic evaluation. Transaminitis, reviewed HIV, hep panel, lipase. Positive HCV serology. RNA has been requested and pending. Depression, suicidal ideation: Reviewed psychiatry note. Attestations 2 Medical Necessity Statement*: Continue psychiatric assessment and management. Continue IV fluid, reassess kidney injury, CPK with symptomatic rhabdomyolysis. Diagnoses RUTHANN (acute kidney injury) N17.9 Transaminitis R74.01
[2024-09-24] MEDS: hyDROXYzine 25 mg Capsule 50 MG PO (21:19)
[2024-09-24] MEDS: trazodone 50 mg Tablet PO (21:20)
[2024-09-24] MEDS: OLANZapine 5 mg TABLET PO (21:21)
[2024-09-24] MEDS: nicotine 4 mg lozenge MUCOUS MEM (21:22)
[2024-09-25] VITALS (7 sets, daily range): BP systolic 106–111; BP diastolic 53–94; PULSE 70–93; RESP 16–18; TEMP 36.4–37; O2SAT 98–100
[2024-09-25] MEDS: sodium chloride 0.9% 1,000 ML 75 ML IV (02:18)
[2024-09-25] MEDS: nicotine 4 mg lozenge MUCOUS MEM ×5 (06:42→17:10)
[2024-09-25] MEDS: oxyCODONE 5 mg IR Tab/Cap 10 MG PO ×4 (08:07→21:21)
[2024-09-25] MEDS: ferrous sulfate EC 325 mg Tablet PO (08:07)
[2024-09-25] MEDS: escitalopram 10 mg Tablet PO (08:07)
[2024-09-25] MEDS: gabapentin 300 mg Capsule PO ×3 (08:07→21:21)
[2024-09-25] MEDS: OLANZapine 5 mg ODT PO ×2 (08:07→14:47)
[2024-09-25 08:11] LABS: Alanine Aminotransferase 70 U/L (0-41); Albumin Level 3.6 g/dL (3.5-5.2); Alkaline Phosphatase 65 U/L (40-130); Anion Gap 14.2 (5-19); Aspartate Amino Transferase 56 U/L (0-40); Blood Urea Nitrogen 36 mg/dL (6-20); Calcium 8.9 mg/dL (8.5-10.5); Carbon Dioxide 25 mmol/L (22-29); Chloride 101 mmol/L (98-107); Creatinine Clr Calc Pharmacy 45.2141; Globulin 2.2 g/dL (1.3-4.6); Glomerular Filtration Rate 36.5 mL/min (90-130); Glucose 99 mg/dL (65-115); Osmolality Calculated 290 mOsm/kg (285-295); Potassium 4.2 mmol/L (3.5-5.1); Sodium 136 mmol/L (136-145); Total Bilirubin 0.2 mg/dL (0.15-1.2); Total Protein 5.8 g/dL (6.6-8.7)
[2024-09-25 08:17] LABS: Creatine Phosphokinase 964 U/L (39-308)
[2024-09-25] MEDS: haloperidol 5 mg Tablet PO (09:29)
--- NOTE | 2024-09-25 09:34 | PC.NURSE ---
Morning assessment Patient tearful during morning assessment. Patient rates anxiety 9/10 and pain 9/10. Patient denies suicidal ideation, homicidal ideation, and hallucinations. Patient stated to this nurse that he messed up real bad, which in turn is going to mess up his whole life. 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 Patient given haldol 5mg PO following zyprexa 5mg ODT for anxiety.
[2024-09-25] MEDS: hyDROXYzine 25 mg Capsule 50 MG PO ×2 (14:15→21:22)
--- NOTE | 2024-09-25 14:49 | PC.NURSE ---
PRN Zyprexa 5mg ODT given to pt for complaints of anxiety 9(0-10)
--- NOTE | 2024-09-25 17:53 | P.NPUPN_ITS ---
Subjective NPU 2 Subjective: 44-year-old male admitted with auditory and visual hallucinations along with depression and suicidal ideation. The patient had continued to report hearing voices. He had reported that he continued to feel depressed. He stated that he was feeling better in the sense that he was able to better discern real things from imaginary things here. Patient had continued report feeling tired and sad. He had expressed sadness at relapsing on methamphetamine stating that he had been able to maintain work and had avoided illicit substances for a good deal of time. Patient had been less isolative on the milieu today. He had reported some improvement in sleep last night. He had reported that the voices had been quieter since the initiation of the Zyprexa. Mental Status Exam 2 MSE Comments: He is pleasant and cooperative on interview. His speech was normal in regards to rate, rhythm and prosody. His mood was described as low. His affect was restricted in range and mood congruent. He did not appear to be responding to internal stimuli and endorsed fleeting auditory hallucinations and no visual hallucinations. There was no evidence of delusional thinking. He was alert oriented to person, place, time and situation. His recent and remote memory appeared grossly intact. His attention span was adequate. He denied any homicidal ideation but endorsed suicidal ideation. His insight was poor. His judgment at this time was poor. His impulse control appeared fair. There is no evidence of any abnormal involuntary motor movements tics or tremors appreciated. Vitals/I&O/Wt Last Vital Signs Temp 98.6 F 09/25/24 14:00 Pulse 77 09/25/24 14:00 Resp 16 09/25/24 17:10 BP 106/94 09/25/24 14:00 Pulse Ox 99 09/25/24 14:00 O2 Del Method Room Air 09/25/24 14:00 09/25/24 09/25/24 09/25/24 06:59 14:59 22:59 Intake Total 941.25 / 1867.50 960 / 960 Balance 941.25 / 1867.50 960 / 960 Data NPU 09/23/24 22:59 09/25/24 07:43 A&P Assessment and plan (1) Depression, unspecified: (2) Unspecified psychosis: (3) Suicidal ideation: (4) Methamphetamine abuse: Plan 44-year-old male with a past history of malignant mesothelioma reports worsening mood in the presence of hallucinations in the context of active use of methamphetamine after an extended history of sobriety from methamphetamine. Patient was agreeable to treatment for his depression and psychosis at this time. #1.? Engage patient in individual milieu and group therapy. #2?? Recommend sober living treatment at the highest level of care to which the patient is willing to commit #3???Continue Zyprexa 5mg at night to target psychosis. Continue Lexapro 10mg daily to target depression. Continue Oxycodone as prescribed. #4?? TO-15 minute checks? #5?? Will attempt to gather collateral information #6 Appreciate medical consult for treatment of Rhabdomyolysis. IV fluids etc. Involuntary Hold Information 2 96 Hour Hold: 96 Hour Involuntary Admission: Yes 96 Hour Hold Ending Date: 09/28/24 96 Hour Hold Ending Time: 17:13 Attestations NPU 2 Medical Necessity Statement*: Inpatient hospitalization is medically necessary and deemed to ?be ?the clinically appropriate intervention ?at this time.? We will monitor/initiate medications and make changes as indicated.? The patient?s likely length of stay 3-4 days. Coding Level of Care Code Acute Code for Chg Fwd Diagnoses Depression, unspecified F32.A Unspecified psychosis F29 Suicidal ideation R45.851 Methamphetamine abuse F15.10
--- NOTE | 2024-09-25 18:37 | P.PN_ITS ---
Subjective 2 Subjective: This morning he states was a bit rough for him, but in the afternoon he is feeling better. Denies any worsening aches. Tolerating oral intake. Vitals/I&O/Wt Last Vital Signs Temp 98.6 F 09/25/24 14:00 Pulse 77 09/25/24 14:00 Resp 16 09/25/24 17:10 BP 106/94 09/25/24 14:00 Pulse Ox 99 09/25/24 14:00 O2 Del Method Room Air 09/25/24 14:00 09/25/24 09/25/24 09/25/24 06:59 14:59 22:59 Intake Total 941.25 / 1867.50 960 / 960 Balance 941.25 / 1867.50 960 / 960 Physical Exam 2 Narrative: Having lunch in the common room. Const: COMMON NORMALS: patient oriented x3 and alert GENERAL APPEARANCE: c ooperative ORIENTATION/CONSCIOUSNESS: Yes awake HENMT: COMMON NORMALS: oropharynx normal Resp: COMMON NORMALS: normal respiratory effort GI: INSPECTION: No abdominal distension Extremity: COMMON NORMALS: no joint enlargement and no pedal edema Neuro: COMMON NORMALS: patient oriented x3 and moves all extremities S ENSORIUM/ORIENTATION: Yes alert Skin: COMMON NORMALS: no rashes or lesions noted GENERAL SKIN EXAM: no rashes or lesions noted Data 09/23/24 22:59 09/25/24 07:43 A&P Assessment and plan (1) RUTHANN (acute kidney injury): (2) Transaminitis: Plan Acute kidney injury: Reviewed vitals, interval labs, reviewed BUN, creatinine, anion gap, bicarb, potassium. Improving renal function. BUN down to 36, creatinine 2. Anion gap, bicarb unremarkable. Potassium is normal. Reviewed CK, decreasing down to 964. Continued IV fluids for today, will discontinue tonight. He is ambulating,tolerating oral intake. Recheck chemistry, CK. Reviewed psychiatry note. -Etiology unclear Leukocytosis: leukocytosis resolved. CRP with moderate elevation. Procalcitonin not elevated at 0.49. Iron deficiency: Started iron supplementation would benefit from outpatient follow-up to further assess cause, plan endoscopic evaluation. Transaminitis, reviewed HIV, hep panel, lipase. Positive HCV serology. RNA has been requested and pending. Depression, suicidal ideation: Reviewed psychiatry note. Attestations 2 Medical Necessity Statement*: Continue psychiatric assessment and management. Continue IV fluid, reassess kidney injury, CPK with symptomatic rhabdomyolysis. Diagnoses RUTHANN (acute kidney injury) N17.9 Transaminitis R74.01
[2024-09-25] MEDS: OLANZapine 5 mg TABLET PO (21:21)
[2024-09-25] MEDS: trazodone 50 mg Tablet PO (21:21)
[2024-09-26] MEDS: trazodone 50 mg Tablet PO ×2 (03:16→20:09)
[2024-09-26] MEDS: nicotine 4 mg lozenge MUCOUS MEM ×2 (03:16→06:19)
[2024-09-26] MEDS: hyDROXYzine 25 mg Capsule 50 MG PO ×3 (03:16→20:09)
[2024-09-26 05:18] LABS: Alanine Aminotransferase 51 U/L (0-41); Albumin Level 3.1 g/dL (3.5-5.2); Alkaline Phosphatase 55 U/L (40-130); Anion Gap 9.9 (5-19); Aspartate Amino Transferase 36 U/L (0-40); Blood Urea Nitrogen 33 mg/dL (6-20); Calcium 8.7 mg/dL (8.5-10.5); Carbon Dioxide 26 mmol/L (22-29); Chloride 107 mmol/L (98-107); Creatinine Clr Calc Pharmacy 50.2379; Globulin 2.2 g/dL (1.3-4.6); Glomerular Filtration Rate 41.2 mL/min (90-130); Glucose 105 mg/dL (65-115); Osmolality Calculated 296 mOsm/kg (285-295); Potassium 3.9 mmol/L (3.5-5.1); Sodium 139 mmol/L (136-145); Total Bilirubin 0.2 mg/dL (0.15-1.2); Total Protein 5.3 g/dL (6.6-8.7)
[2024-09-26 05:21] LABS: Creatine Phosphokinase 471 U/L (39-308)
[2024-09-26 06:00] VITALS: BP 112/72; PULSE 80; RESP 16; O2SAT 99
[2024-09-26] MEDS: oxyCODONE 5 mg IR Tab/Cap 10 MG PO ×4 (06:19→20:09)
[2024-09-26] MEDS: nicotine 21 mg Patch 1 PATCH TRANSDERMA (07:46)
[2024-09-26] MEDS: escitalopram 10 mg Tablet PO (08:13)
[2024-09-26] MEDS: gabapentin 300 mg Capsule PO ×3 (08:13→20:19)
[2024-09-26] MEDS: ferrous sulfate EC 325 mg Tablet PO (08:13)
[2024-09-26] MEDS: OLANZapine 5 mg ODT PO (09:18)
--- NOTE | 2024-09-26 09:26 | PC.NURSE ---
Carlos Patient rates anxiety 5/10, says his anxiety is much better compared to yesterday.
[2024-09-26 10:25] VITALS: RESP 16
--- NOTE | 2024-09-26 13:35 | P.NPUPN_ITS ---
Subjective NPU 2 Subjective: 44-year-old male admitted with auditory and visual hallucinations along with depression and suicidal ideation. The patient had reported feeling better today. He reported no side effects from his medication. He had reported that the hallucinations were less prominent. He stated that his voices were quieter. The patient had been less isolative on the milieu. He had continued to endorse depression. He had not endorsed any hopelessness today. He had continued to report some pain issues and appeared relieved with the presence of oxycodone. He had been able to attend groups yesterday. Mental Status Exam 2 MSE Comments: He is pleasant and cooperative on interview. His speech was normal in regards to rate, rhythm and prosody. His mood was described as better. His affect remained flat. He did not appear to be responding to internal stimuli and endorsed fleeting auditory hallucinations and no visual hallucinations. There was no evidence of delusional thinking. He was alert oriented to person, place, time and situation. His recent and remote memory appeared grossly intact. His attention span was adequate. He denied any homicidal ideation but endorsed suicidal ideation. His insight was poor. His judgment at this time was poor. His impulse control appeared fair. There is no evidence of any abnormal involuntary motor movements tics or tremors appreciated. Vitals/I&O/Wt Last Vital Signs Temp 97.5 F L 09/25/24 22:00 Pulse 80 09/26/24 06:00 Resp 16 09/26/24 10:25 BP 112/72 09/26/24 06:00 Pulse Ox 99 09/26/24 06:00 O2 Del Method Room Air 09/26/24 06:00 09/25/24 09/26/24 09/26/24 22:59 06:59 14:59 Intake Total 480 / 1440 1480 / 1480 Balance 480 / 1440 1480 / 1480 Data NPU 09/23/24 22:59 09/26/24 04:07 A&P Assessment and plan (1) Depression, unspecified: (2) Suicidal ideation: (3) RUTHANN (acute kidney injury): (4) Transaminitis: (5) Unspecified psychosis: (6) Methamphetamine abuse: Plan 44-year-old male with a past history of malignant mesothelioma reports worsening mood in the presence of hallucinations in the context of active use of methamphetamine after an extended history of sobriety from methamphetamine. Patient was agreeable to treatment for his depression and psychosis at this time. #1.? Engage patient in individual milieu and group therapy. #2?? Recommend sober living treatment at the highest level of care to which the patient is willing to commit #3???Increase zyprexa to 7.5mg at night to target psychosis. Continue Lexapro 10mg daily to target depression. Continue Oxycodone as prescribed. #4?? TO-15 minute checks? #5?? Will attempt to gather collateral information #6 Appreciate medical consult for treatment of Rhabdomyolysis. IV fluids etc. Involuntary Hold Information 2 96 Hour Hold: 96 Hour Involuntary Admission: Yes 96 Hour Hold Ending Date: 09/28/24 96 Hour Hold Ending Time: 17:13 Attestations NPU 2 Medical Necessity Statement*: Inpatient hospitalization is medically necessary and deemed to ?be ?the clinically appropriate intervention ?at this time.? We will monitor/initiate medications and make changes as indicated.? The patient?s likely length of stay 3-4 days. Coding Level of Care Code Acute Code for [facility] Fwd Diagnoses Depression, unspecified F32.A Suicidal ideation R45.851 RUTHANN (acute kidney injury) N17.9 Transaminitis R74.01 Unspecified psychosis F29 Methamphetamine abuse F15.10
[2024-09-26 14:00] VITALS: BP 125/69; PULSE 83; RESP 16; TEMP 36.5; O2SAT 100
[2024-09-26 16:02] VITALS: RESP 16; O2SAT 100
[2024-09-26] MEDS: haloperidol 5 mg Tablet PO (16:05)
[2024-09-26 20:09] VITALS: RESP 16; O2SAT 99
[2024-09-26] MEDS: OLANZapine 5 mg TABLET 7.5 MG PO (20:20)
--- NOTE | 2024-09-26 21:51 | P.PN_ITS ---
Subjective 2 Subjective: He reports he is feeling better overall. Denies muscle aches. Denies chest pain pressure or trouble breathing. Has been ambulatory Neuropsychiatric unit. Maintaining oral intake. Discussed with him to avoid dehydration. Vitals/I&O/Wt Last Vital Signs Temp 97.7 F 09/26/24 14:00 Pulse 83 09/26/24 14:00 Resp 16 09/26/24 20:09 BP 125/69 09/26/24 14:00 Pulse Ox 99 09/26/24 20:09 O2 Del Method Room Air 09/26/24 14:00 09/26/24 09/26/24 09/26/24 06:59 14:59 22:59 Intake Total 1480 / 1480 480 / 1960 Balance 1480 / 1480 480 / 1960 Physical Exam 2 Const: COMMON NORMALS: patient oriented x3 and alert GENERAL APPEARANCE: c ooperative ORIENTATION/CONSCIOUSNESS: Yes awake HENMT: COMMON NORMALS: oropharynx normal Neck/C-Spine: COMMON NORMALS: no JVD Resp: COMMON NORMALS: normal respiratory effort and clear to auscultation bilaterally AUSCULTATION: clear to auscultation bilaterally Cardio: COMMON NORMALS: no JVD, regular rhythm, S1 normal heart sound present, S2 normal heart sound present and No murmurs present (Cardio) RHYTHM: regular rhythm HEART SOUNDS: S1 normal heart sound present and S2 normal heart sound present GI: COMMON NORMALS: Normal to inspection, nondistended, normoactive bowel sounds present, Soft to palpation and non-tender INSPECTION: No abdominal distension PALPATION: Yes Soft to palpation Extremity: COMMON NORMALS: no joint enlargement and no pedal edema Neuro: COMMON NORMALS: patient oriented x3 and moves all extremities S ENSORIUM/ORIENTATION: Yes alert Skin: COMMON NORMALS: no rashes or lesions noted GENERAL SKIN EXAM: no rashes or lesions noted Data 09/23/24 22:59 09/26/24 04:07 A&P Assessment and plan (1) RUTHANN (acute kidney injury): (2) Transaminitis: Plan Acute kidney injury: Reviewed vitals, BUN, creatinine, CK. Improving RUTHANN. BUN down to 33, creatinine down to 1.8. Bicarb, anion gap unremarkable. CK decreasing down to 471. He is maintaining oral intake. Discussed with him to maintain oral hydration, avoid dehydration. Discussed with psychiatrist, will repeat additional BMP for next 2 days, but otherwise we will sign off. Please feel free to reconsult in case of worsening or any additional issues. Otherwise should follow-up with primary provider for reassessment. Leukocytosis: leukocytosis resolved. CRP with moderate elevation. Procalcitonin not elevated at 0.49. Iron deficiency: Started iron supplementation would benefit from outpatient follow-up to further assess cause, plan endoscopic evaluation. Transaminitis, reviewed HIV, hep panel, lipase. Reviewed hepatitis panel, discussed with him positive HCV serology. RNA still pending. He does state that he has had history of HCV from which he had recovered in the past. Should follow-up with primary provider raised regards to results of HCV RNA to confirm remains in remission. Discussed with psychiatry. Depression, suicidal ideation: Reviewed psychiatry note. Attestations 2 Medical Necessity Statement*: Continue psychiatric assessment and management. , Moderate MDM includes number and complexity of problems actively addressed during encounter as documented and High MDM includes amount and/or complexity of data reviewed/ordered [ resulted lab(s)/test(s), ordered lab(s)/test(s) and other healthcare professional discussion] as documented Diagnoses RUTHANN (acute kidney injury) N17.9 Transaminitis R74.01
[2024-09-26 22:00] VITALS: BP 120/68; PULSE 82; RESP 16; TEMP 36.6; O2SAT 99
[2024-09-27] VITALS (7 sets, daily range): BP systolic 103–149; BP diastolic 58–73; PULSE 86–90; RESP 16–17; TEMP 36.7–37.1; O2SAT 98–100; BMI 23.2
[2024-09-27] MEDS: oxyCODONE 5 mg IR Tab/Cap 10 MG PO ×4 (06:06→18:41)
[2024-09-27] MEDS: nicotine 4 mg lozenge MUCOUS MEM (06:07)
[2024-09-27] MEDS: gabapentin 300 mg Capsule PO ×3 (08:15→21:09)
[2024-09-27] MEDS: ferrous sulfate EC 325 mg Tablet PO (08:15)
[2024-09-27] MEDS: escitalopram 10 mg Tablet PO (08:15)
[2024-09-27] MEDS: hyDROXYzine 25 mg Capsule 50 MG PO ×2 (08:27→21:09)
[2024-09-27] MEDS: nicotine 21 mg Patch 1 PATCH TRANSDERMA (08:27)
[2024-09-27 09:01] LABS: Anion Gap 14.1 (5-19); Blood Urea Nitrogen 24 mg/dL (6-20); Carbon Dioxide 27 mmol/L (22-29); Chloride 99 mmol/L (98-107); Creatinine Clr Calc Pharmacy 55.6477; Glucose 148 mg/dL (65-115); Osmolality Calculated 287 mOsm/kg (285-295); Potassium 5.1 mmol/L (3.5-5.1); Sodium 135 mmol/L (136-145)
[2024-09-27] MEDS: OLANZapine 5 mg ODT PO (13:30)
--- NOTE | 2024-09-27 13:40 | PC.NURSE ---
Zyprexa 5mg ODT for anxiety that patient rates 04/15. Patient anxious about multiple things, such as gettin discharged tomorrow and returning home
--- NOTE | 2024-09-27 13:43 | W.PM.NPUPNS ---
Subjective NPU Subjective: 44-year-old male admitted with auditory and visual hallucinations along with depression and suicidal ideation. Patient had reported feeling much better. She he had reported that the voices had been virtually absent. He had reported that he continued to feel depressed but was not having thoughts of hurting himself. He had continued to report having episodes of anxiety. Mental Status Exam MSE Comments: He is pleasant and cooperative on interview. His speech was normal in regards to rate, rhythm and prosody. His mood was described as better. His affect remained constricted. He did not appear to be responding to internal stimuli and endorsed fleeting auditory hallucinations and no visual hallucinations. There was no evidence of delusional thinking. He was alert oriented to person, place, time and situation. His recent and remote memory appeared grossly intact. His attention span was adequate. He denied any homicidal ideation or suicidal ideation. His insight was improving. His judgment at this time was improving as well. His impulse control appeared fair. There is no evidence of any abnormal involuntary motor movements tics or tremors. appreciated. Vitals/I&O/Wt Last Vital Signs Temp 98.7 F 09/27/24 06:00 Pulse 87 09/27/24 06:00 Resp 16 09/27/24 10:16 BP 103/58 09/27/24 06:00 Pulse Ox 98 09/27/24 06:06 O2 Del Method Room Air 09/27/24 06:00 09/26/24 09/27/24 09/27/24 22:59 06:59 14:59 Intake Total 480 / 1960 Balance 480 / 1960 Weight last 48 hrs Weight 71.327 kg Data NPU 09/23/24 22:59 09/27/24 08:33 A&P Assessment and plan (1) RUTHANN (acute kidney injury): (2) Transaminitis: (3) Depression, unspecified: (4) Suicidal ideation: (5) Unspecified psychosis: (6) Methamphetamine abuse: Plan 44-year-old male with a past history of malignant mesothelioma reports worsening mood in the presence of hallucinations in the context of active use of methamphetamine after an extended history of sobriety from methamphetamine. Patient was agreeable to treatment for his depression and psychosis at this time. #1.? Engage patient in individual milieu and group therapy. #2?? Recommend sober living treatment at the highest level of care to which the patient is willing to commit #3???Continue zyprexa at 7.5mg at night to target psychosis. Continue Lexapro 10mg daily to target depression. Continue Oxycodone as prescribed for pain. Hold sublocade for pain. #4?? TO-15 minute checks? #5?? Will attempt to gather collateral information #6 Appreciate medical consult for treatment of Rhabdomyolysis. IV fluids etc. Involuntary Hold Information 96 Hour Hold: 96 Hour Involuntary Admission: Yes 96 Hour Hold Ending Date: 09/28/24 96 Hour Hold Ending Time: 17:13 Other Hold: Hold End Date: 09/28/24 Attestations NPU Medical Necessity Statement*: Inpatient hospitalization is medically necessary and deemed to ?be ?the clinically appropriate intervention ?at this time.? We will monitor/initiate medications and make changes as indicated.? The patient?s likely length of stay 1-2 days. Coding Level of Care Code Acute Code for [facility] Fwd Diagnoses RUTHANN (acute kidney injury) N17.9 Transaminitis R74.01 Depression, unspecified F32.A Suicidal ideation R45.851 Unspecified psychosis F29 Methamphetamine abuse F15.10
[2024-09-27] MEDS: benzocaine 20% 7 gm 1 APPLIC MUCOUS MEM (18:05)
[2024-09-27] MEDS: OLANZapine 5 mg TABLET 7.5 MG PO (21:08)
[2024-09-27] MEDS: trazodone 50 mg Tablet PO (21:09)
[2024-09-28 06:00] VITALS: BP 148/86; PULSE 76; RESP 16; TEMP 36.7; O2SAT 99
[2024-09-28 06:18] VITALS: RESP 16; O2SAT 99
[2024-09-28] MEDS: oxyCODONE 5 mg IR Tab/Cap 10 MG PO ×2 (06:18→12:27)
[2024-09-28] MEDS: nicotine 4 mg lozenge MUCOUS MEM ×3 (06:21→10:14)
[2024-09-28] MEDS: gabapentin 300 mg Capsule PO (08:03)
[2024-09-28] MEDS: ferrous sulfate EC 325 mg Tablet PO (08:03)
[2024-09-28] MEDS: escitalopram 10 mg Tablet PO (08:03)
[2024-09-28 09:08] LABS: Anion Gap 12.2 (5-19); Blood Urea Nitrogen 28 mg/dL (6-20); Carbon Dioxide 28 mmol/L (22-29); Chloride 97 mmol/L (98-107); Creatinine Clr Calc Pharmacy 59.1257; Glomerular Filtration Rate 47.2 mL/min (90-130); Glucose 148 mg/dL (65-115); Osmolality Calculated 282 mOsm/kg (285-295); Potassium 5.2 mmol/L (3.5-5.1); Sodium 132 mmol/L (136-145)
--- NOTE | 2024-09-28 12:07 | P.NPUDS_ITS ---
Diagnoses at Discharge Discharge Diagnosis (1) RUTHANN (acute kidney injury): Status: Acute (2) Transaminitis: Status: Acute (3) Depression, unspecified: Status: Acute (4) Suicidal ideation: Status: Acute (5) Unspecified psychosis: Status: Acute (6) Methamphetamine abuse: Status: Acute Reason for Visit Reason for Visit: 96 Hold Brief History: History of Present Illness Jacek Romero is a 44 year old male who presented to the emergency department accompanied by the police after he had reported to police that he had been feeling suicidal and more depressed since relapsing on methamphetamine over the last 8 days. The patient was admitted to the neuropsychiatric unit for further evaluation and treatment. He endorses having increasing thoughts of suicide. He reports that he has been having frequent awakenings at night. He reports having chronic pain issues. He reports increased stress from a declining relationship with his current . He had stated that he had been sober off of methamphetamine for 6 years but decided to hawk with his meth amphetamine using and take methamphetamine with her. He reports that since that time he has also been having auditory hallucinations reporting that he hears to stupid street supervisor messing in my head . He also reports seeing various things that do not appear to be there. He has reported that this is caused him a great deal of distress. He endorses increased feelings of hopelessness. He reports difficulties with concentration and endorses that he has been crying more frequently. He denies any history of romulo. He did report a past history of psychosis associated with methamphetamine use. He denies any recent problems with his previous medical issues regarding malignant mesothelioma. He has reported some recent anhedonia. He denied any recent shortness of breath. He reported no history of recent hemoptysis. He denied any recent anxiety. He does report some recent loss of appetite. Inpatient psychiatric history: None Outpatient psychiatric history: None reported, previous records that indicated some medication trials with psychotropic medications including olanzapine, and mirtazapine over the past year. Medical history: History of malignant mesothelioma with history of chemotherapy. Patient reports receiving routine PET scans every 3 months through [facility]. Surgical history: Patient does report a history of a recent pleurectomy. Allergies: No known drug allergies Current medications: Gabapentin 300 mg twice a day, oxycodone, mirtazapine 7.5 mg at night, buprenorphine patch 20 mcg/h Legal history: None reported Family psychiatric history: None reported Substance abuse history: He reported having used methamphetamines for many years and stated relapsing after 6 years of sobriety. He had not endorsed any history of recent substance abuse treatment either inpatient or outpatient. He denies any routine alcohol use. He does report routine marijuana use. Social history: Patient was born in [place] and raised by his biological parents. He had denied any history of trauma during his childhood. He reports that he had graduated high school from [place]. He has 1 brother and 2 sisters. He reports that he has 2 children from a previous relationship. He reports that he has been for 5 years and currently lives with his . 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 He had reported no history of problems with learning during his childhood. Hospital Course Hospital Course During the hospitalization, the patient had routine laboratory studies which were within normal limits except for a few outliers.? Additionally, there was a general medical evaluation which was also within normal limits and revealed no new acute processes.? At the time of discharge, lethality was denied and psychosis was resolving.? Mood and anxiety were well managed.? The patient endorsed a plan to avoid all drugs of abuse and follow up with the aftercare recommendations of the treatment team.? The patient was evaluated and deemed to be absent credible lethality and had achieved the maximum benefit from an inpatient hospitalization, and so was discharged. ?The patient had presented with acute kidney injury likely secondary from methamphetamine. Patient was seen by the medical team and was given IV fluids here on the unit. The patient had complained of hallucinations and worsening depression. Zyprexa was initiated and targeted up to 7.5 mg at night to target psychosis with improvement noted. The patient had also reported improvement with depression as he was started on Lexapro and titrated to a dose of 10mg daily at the time of discharge. He had considerable chronic pain issues. He reported interest in outpatient digital therapeutics for treating methamphetamine abuse. Involuntary Hold Information 96 Hour Hold: 96 Hour Involuntary Admission: Yes 96 Hour Hold Ending Date: 09/28/24 96 Hour Hold Ending Time: 17:13 Other Hold: Hold End Date: 09/28/24 Mental Status Exam MSE Comments: He was pleasant and cooperative on interview. His speech was normal in regards to rate, rhythm and prosody. His mood was described as better. His affect appeared brighter on discharge. He did not appear to be responding to internal stimuli and denied auditory hallucinations and denied visual hallucinations. There was no evidence of delusional thinking. He was alert oriented to person, place, time and situation. His recent and remote memory appeared grossly intact. His attention span was adequate. He denied any homicidal ideation or suicidal ideation. His insight was improving. His judgment at this time was improving as well. His impulse control appeared fair. There is no evidence of any abnormal involuntary motor movements tics or tremors. appreciated. Discharge Data Studies Completed and Pending: Completed Studies During Hospitalization Category Date Time Status US abdomen comple te* [id number] Routine Ultrasound 09/24/24 00:08 Completed Pending at discharge Category Date Time Status Hepatitis C RNA V iral Load Qnt Rout ine Lab 09/24/24 00:11 Received Radiology Impressions Abdomen Ultrasound 09/24/24 00:08 Impression: 1. Status post cholecystectomy. 2. No renal obstruction or mass. 3. No intrahepatic duct dilatation. Laboratory Results WBC 8.56 10^3/uL (3.2 9-11.43) 09/23/24 22:59 RBC 4.44 10^6/uL (3.8 5-5.65) 09/23/24 22:59 Hgb 11.90 g/dL (11.27 -16.99) 09/23/24 22:59 Hct 34.6 % (37-53) L 09/23/24 22:59 MCV 77.9 fl (82-101) L 18 22:59 MCH 26.8 pg (27-33) L 09/23/24 22:59 MCHC 34.4 g/dL (30-55) 09/23/24 22:59 RDW 14.7 % (12.1-15.1 ) 09/23/24 22:59 Plt Count 349 10^3/cmm (157 -399) 09/23/24 22:59 MPV 9.0 fL (7.4-10.4) 09/23/24 22:59 Neut % (Auto) 69.5 % 09/23/24 22:59 Lymph % (Auto) 19.4 % 09/23/24 22:59 [place] % (Auto) 9.2 % 09/23/24 22:59 Eos % (Auto) 1.2 % 09/23/24 22:59 Baso % (Auto) 0.5 % 09/23/24 22:59 Neut # (Auto) 5.95 10^3/uL (1.8 -7.7) 09/23/24 22:59 Lymph # (Auto) 1.7 10^3/uL (0.8- 4.8) 09/23/24 22:59 [place] # (Auto) 0.8 10^3/uL (0.2- 0.9) 09/23/24 22:59 Eos # (Auto) 0.1 10^3/uL (0.0- 0.8) 09/23/24 22:59 Baso # (Auto) 0.0 10^3/uL (0.0- 0.1) 09/23/24 22:59 Nucleated RBC % (a uto) 0 % 09/23/24 22:59 Nucleated RBCs # 0.0 /100WBC 09/23/24 22:59 Sodium 132 mmol/L (136-1 45) L 09/28/24 08:23 Potassium 5.2 mmol/L (3.5-5 .1) H 09/28/24 08:23 Chloride 97 mmol/L (98-107 ) L 09/28/24 08:23 Carbon Dioxide 28 mmol/L (22-29) 09/28/24 08:23 Anion Gap 12.2 (5-19) 09/28/24 08:23 BUN 28 mg/dL (6-20) H 09/28/24 08:23 Creatinine 1.6 mg/dL (0.7-1. 2) H 09/28/24 08:23 GFR Calculation 47.2 mL/min (90-1 30) L 09/28/24 08:23 Glucose 148 mg/dL (65-115 ) H 09/28/24 08:23 Calculated Osmolal ity 282 mOsm/kg (285- 295) L 09/28/24 08:23 Calcium 9.0 mg/dL (8.5-10 .5) 09/28/24 08:23 Iron 19 ug/dL (59-158) L 09/23/24 22:59 Iron Cancelled 09/23/24 22:59 TIBC 225 mcg/dl 09/23/24 22:59 % Saturation 8.4 % (20-50) L 09/23/24 22:59 Unsat Iron Binding 206 ug/dL (112-34 7) 09/23/24 22:59 Ferritin 208 ng/mL (30-400 ) 09/23/24 22:59 Total Bilirubin 0.2 mg/dL (0.15-1 .2) 09/26/24 04:07 GGT 18 U/L (8-61) 09/23/24 22:59 AST 36 U/L (0-40) 09/26/24 04:07 ALT 51 U/L (0-41) H 09/26/24 04:07 Alkaline Phosphata se 55 U/L (40-130) 09/26/24 04:07 Creatine Kinase 471 U/L (39-308) H* 09/26/24 04:07 C-Reactive Protein 46.6 mg/L (0.0-4. 9) H 09/23/24 22:59 Total Protein 5.3 g/dL (6.6-8.7 ) L 09/26/24 04:07 Albumin 3.1 g/dL (3.5-5.2 ) L 09/26/24 04:07 Globulin 2.2 g/dL (1.3-4.6 ) 09/26/24 04:07 Lipase 102 U/L (13-60) H 09/23/24 22:59 Procalcitonin 0.49 ng/mL (0-0.5 ) 09/23/24 22:59 Urine Color Yellow (Yellow) 09/23/24 22:30 Urine Appearance Clear (CLEAR) 09/23/24 22:30 Urine pH 5.5 (5-7) 09/23/24 22:30 Ur Specific Gravit y 1.021 (1.005-1.0 30) 09/23/24 22:30 Urine Protein 1+ (Negative) A 09/23/24 22:30 Urine Glucose (UA) Negative (Normal ) 09/23/24 22:30 Urine Ketones Negative (Negati ve) 09/23/24 22:30 Urine Blood Trace (Negative) A 09/23/24 22:30 Urine Nitrate Negative (Negati ve) 09/23/24 22:30 Urine Bilirubin Negative (Negati ve) 09/23/24 22:30 Urine Urobilinogen 1.0 mg/dL (Negati ve) 09/23/24 22:30 Ur Leukocyte Melissa ase Negative (Negati ve) 09/23/24 22:30 Urine RBC 0-2 /hpf (0-2) 09/23/24 22:30 Urine WBC 0-5 /hpf (0-5) 09/23/24 22:30 Ur Squamous Epith Cells 0-5 /hpf (0-5) 09/23/24 22:30 Amorphous Sediment Not Reportable 09/23/24 22:30 Urine Bacteria None seen /hpf (N ONE) 09/23/24 22:30 Hyaline Casts 1.65 /lpf 09/23/24 22:30 Salicylates < 0.3 mg/dL (3-10 ) L 09/22/24 17:50 Urine Opiates Scre en Negative ng/mL (N egative) 09/22/24 21:39 Acetaminophen < 5.0 ug/mL (10-3 0) L 09/22/24 17:50 Ur Barbiturates Sc reen Negative ng/mL (N egative) 09/22/24 21:39 Ur Phencyclidine S crn Negative ng/mL (N egative) 09/22/24 21:39 Ur Amphetamines Sc reen Positive ng/mL (N egative) H 09/22/24 21:39 U Benzodiazepines Scrn Negative ng/mL (N egative) 09/22/24 21:39 Urine Cocaine Scre en Negative ng/mL (N egative) 09/22/24 21:39 U Marijuana (THC) Screen Positive ng/mL (N egative) H 09/22/24 21:39 Ethyl Alcohol < 10 mg/dL (0-10) 09/22/24 17:50 Hepatitis A IgM Ab Non-reactive (No nreactive) 09/23/24 22:59 Hep Bs Antigen Non-reactive (No nreactive) 09/23/24 22:59 Hep B Core IgM Ab Non-reactive (No nreactive) 09/23/24 22:59 Hepatitis C Antibo dy Reactive (Nonrea ctive) H 09/23/24 22:59 HIV 1&2 Ab & HIV 1 Ag Non-reactive (No n-Reactiv) 09/23/24 22:59 HIV 1&2 Antibody Non-reactive (No n-Reactiv) 09/23/24 22:59 Vitals: Last Vital Signs Temp 98.1 F 09/28/24 06:00 Pulse 76 09/28/24 06:00 Resp 16 09/28/24 06:18 BP 148/86 09/28/24 06:00 Pulse Ox 99 09/28/24 06:18 O2 Del Method Room Air 09/28/24 06:00 Discharge Plan Discharge Patient Disposition: Home Condition: Stable Prescriptions: New olanzapine 5 mg Tablet 7.5 mg PO BEDTIME 30 Days Qty: 45 1RF escitalopram oxalate 10 mg Tablet 10 mg PO DAILY 30 Days Qty: 30 1RF docusate sodium 100 mg Capsule 200 mg PO DAILY PRN (Reason: Constipation) 30 Days Qty: 60 1RF ferrous sulfate 325 mg (65 mg iron) Tablet,Delayed Release (Dr/Ec) 325 mg PO BREAKFAST 30 Days Qty: 30 1RF oxycodone 5 mg Tablet 10 mg PO Q6H PRN (Reason: Severe Pain) 2 Days Qty: 16 0RF Continued gabapentin [Neurontin] 300 mg capsule 300 mg PO TID Qty: 90 1RF Discharge Orders: Discharge Order (Routine); Ordered 09/28/24 Ordered By: Freddie Godinez Referrals: [facility] [place] [Other] - 1-3 days (Walk in for services Saturday thru Saturday 7:30am to 3pm.) Aniceto Oswald DO [Primary Care Provider] - Una Washington FNP [Referring] - 10/06/24 11:20 am Discharge Diet: Usual diet Discharge Activity: Resume usual activity Patient Instructions: Iron Supplements (By mouth), Oxycodone, Rapid Release (By mouth) (ETH-Oxydose, Oxy IR,..., Olanzapine (By mouth), Escitalopram (By mouth), Methamphetamine Abuse, Acute Kidney Injury (DC), Depression (DC), Help Prevent Suicide (DC), Psychotic Disorder (DC), Opioid Safety Discharge Attestations NPU Time Spent in Discharge Care*: less than 30 min Specific Discharge Activities: Specific discharge activities: educating patient, discussing with lining caser/social workers/dc planners and documenting/other paperwork Coding Level of Care Code Acute Code for [facility] Fwd Diagnoses RUTHANN (acute kidney injury) N17.9 Transaminitis R74.01 Depression, unspecified F32.A Suicidal ideation R45.851 Unspecified psychosis F29 Methamphetamine abuse F15.10
[2024-09-28 12:27] VITALS: RESP 16; O2SAT 98
[2024-09-28 12:38] VITALS: BP 140/80; PULSE 79; RESP 18; TEMP 36.7; O2SAT 97
[2024-09-28 13:05] LABS: HEP C RNA Viral Load Quant 4660000 IU/mL (NOT DETECTED); HEP C RNA Viral Load Quant 6.67 Log IU/mL (NOT DETECTED)
== END 2024-09-28 13:12 | disposition home or self-care (01) | DRG 881 ==
LOC: ER 18:12 → NP 18:26
PROVIDERS: Family Medicine; Internal Medicine; Admitting Provider Psychiatry & Neurology Psychiatry; Emergency Provider Emergency Medicine; PCP Family Medicine; Visit Provider Psychiatry & Neurology Psychiatry
DX: F32.A Depression, unspecified (principal); R45.851 Suicidal ideations; N17.9 Acute kidney failure, unspecified; M62.82 Rhabdomyolysis; F23 Brief psychotic disorder; F15.10 Other stimulant abuse, uncomplicated; G89.29 Other chronic pain; Z63.0 Problems in relationship with spouse or partner; Z85.89 Personal history of malignant neoplasm of other organs and systems; Z98.890 Other specified postprocedural states; R74.01 Elevation of levels of liver transaminase levels
CPT/HCPCS: 36415; 76700; 80048; 80053; 80074; 80306; 80307; 81001; 82550; 82728; 82977; 83540; 83550; 83690; 84145; 85025; 86140; 87522; 87806; 96372; 97150; 97165; 99285; J1200; J1630; J2060; J7030